=== PATIENT | male | born 1955 ===

== ENCOUNTER 2021-11-11 16:11 | Inpatient (IN) | payer OTHER, MEDICARE ==
[~2021-11-11] VITALS: Ht 172.7 cm; Wt 102.3 kg
[2021-11-11] MEDS ORDERED: FUROSEMIDE 40 MG/4 ML VIAL IVP ONE (16:30)
[2021-11-11 16:44] LABS: BASOPHILS % (AUTO) 1.1 % (0.0-2.0); EOSINOPHILS % (AUTO) 2.8 % (1.0-6.0); HEMATOCRIT 45.8 % (41-53); HEMOGLOBIN 14.9 g/dL (13.5-17.5); LYMPHOCYTES # (AUTO) 4.3 K/uL (1.0-4.8); LYMPHOCYTES % (AUTO) 57.5 % (22.0-44.0); MEAN CORPUSCULAR HGB CONC 32.5 G/dL (31.0-37.0); MEAN CORPUSCULAR VOLUME 86 fL (80-100); MONOCYTES # (AUTO) 0.8 K/uL (0.1-1.0); MONOCYTES % (AUTO) 10.2 % (2.0-9.0); NEUTROPHILS # (AUTO) 2.1 K/uL (1.8-7.7); NEUTROPHILS % (AUTO) 28.4 % (40.0-70.0); PLATELET COUNT (AUTO) 187 K/uL (150-450); RED BLOOD CELL COUNT(AUTO) 5.32 MIL/uL (4.50-5.90); RED CELL DISTRIBUTION WIDTH 16.2 % (11.5-14.5)
[2021-11-11 16:58] LABS: ANION GAP 10 mmol/L (8-16); CALCIUM, TOTAL 8.9 mg/dL (8.8-10.5); CARBON DIOXIDE 24 mmol/L (22-29); CHLORIDE 106 mmol/L (98-107); CREATININE 1.11 mg/dL (0.60-1.30); GLUCOSE,RANDOM 216 mg/dL (70-110); POTASSIUM 3.3 mmol/L (3.5-5.1); SODIUM SERUM 140 mmol/L (136-145); UREA NITROGEN, BLOOD 16 mg/dL (7-18)
[2021-11-11 17:00] LABS: GLOMERULAR FILTR. RATE CALC > 60 mL/min (>60)
[2021-11-11 17:02] LABS: PROTHROMBIN TIME 10.6 SEC (9.4-11.6)
[2021-11-11 17:04] LABS: ALANINE AMINOTRANSFERASE 41 U/L (12-78); ALBUMIN 3.3 g/dL (3.4-5.0); ALKALINE PHOSPHATASE 153 U/L (46-116); ASPARTATE AMINOTRANSFERASE 32 U/L (15-37); BILIRUBIN,TOTAL 0.5 mg/dL (0.1-1.0); TOTAL PROTEIN, SERUM 7.3 g/dL (6.4-8.2)
[2021-11-11 17:10] LABS: B-TYPE NATRIURETIC PEPTIDE 1270 pg/mL (0-100)
[2021-11-11 18:37] LABS: COVID AG,FIA SOURCE NASAL SWAB
[2021-11-11 18:58] LABS: INFLUENZA TYPE A NEGATIVE FOR TYPE A (NEGATIVE); INFLUENZA TYPE B NEGATIVE FOR TYPE B (NEGATIVE)
[2021-11-11 19:42] LABS: APPEARANCE,URINE CLEAR (CLEAR); BILIRUBIN,URINE NEGATIVE (NEGATIVE); GLUCOSE, URINE (UA) NEGATIVE (NEGATIVE); KETONES,URINE NEGATIVE (NEGATIVE); LEUKOCYTE ESTERASE ,URINE NEGATIVE (NEGATIVE); NITRATE,URINE NEGATIVE (NEGATIVE); OCCULT BLOOD,URINE NEGATIVE (NEGATIVE); PH,URINE 5.5 (5.0-8.0); PROTEIN,URINE NEGATIVE (NEGATIVE); SPECIFIC GRAVITIY, URINE 1.005 (1.003-1.030); UROBILINOGEN,URINE <=1.0 mg/dL (<=1.0)
[2021-11-11] MEDS ORDERED: BISACODYL 10 MG RECTAL RECTAL SUPPOSITORY PR PRN (20:45)
[2021-11-11] MEDS ORDERED: ONDANSETRON HCL 4 MG/2 ML VIAL IVP PRN (20:45)
[2021-11-11] MEDS ORDERED: *CLINICAL-LEVOFLOXACIN IVPB DOSING CLINICAL ONE (20:45)
[2021-11-11] MEDS ORDERED: MAGNESIUM HYDROXIDE SUSPENSION 30 ML UDCUP PO PRN (20:45)
[2021-11-11] MEDS ORDERED: ZOLPIDEM TARTRATE 5 MG TABLET PO PRN (20:45)
[2021-11-11] MEDS ORDERED: ACETAMINOPHEN 325 MG TABLET PO PRN (20:45)
[2021-11-11] MEDS ORDERED: MORPHINE SULFATE 2 MG/ML SYRINGE IVP PRN (20:45)
[2021-11-11 21:24] LABS: AMPHET/METH SCREEN,URINE NEGATIVE (NEGATIVE); BARBITURATE SCREEN, URINE NEGATIVE (NEGATIVE); BENZODIAZEPINES SCREEN,URINE NEGATIVE (NEGATIVE); CANNABINOID SCREEN,URINE NEGATIVE (NEGATIVE); COCAINE SCREEN,URINE NEGATIVE (NEGATIVE); METHADONE SCREEN, URINE NEGATIVE (NEGATIVE); OPIATE SCREEN,URINE NEGATIVE (NEGATIVE)
[2021-11-11 21:25] LABS: PHENCYCLIDINE SCREEN,URINE NEGATIVE (NEGATIVE)
[2021-11-11] MEDS: DOCUSATE SODIUM 100 MG CAPSULE PO SCH (21:53)
[2021-11-11] MEDS: FUROSEMIDE 40 MG/4 ML VIAL IVP SCH (21:53)
[2021-11-11] MEDS: LEVOFLOXACIN 750 MG/D5% WATER 150 ML IV SCH (22:07)
[2021-11-12] MEDS: HEPARIN SODIUM,PORCINE 5,000 UNITS/ML VIAL SQ SCH ×2 (00:12→08:21)
[2021-11-12 05:48] LABS: BASOPHILS % (AUTO) 1.2 % (0.0-2.0); EOSINOPHILS % (AUTO) 0.8 % (1.0-6.0); HEMATOCRIT 42.8 % (41-53); LYMPHOCYTES # (AUTO) 1.6 K/uL (1.0-4.8); LYMPHOCYTES % (AUTO) 28.5 % (22.0-44.0); MEAN CORPUSCULAR HGB CONC 32.8 G/dL (31.0-37.0); MEAN CORPUSCULAR VOLUME 86 fL (80-100); MONOCYTES # (AUTO) 0.6 K/uL (0.1-1.0); MONOCYTES % (AUTO) 10.2 % (2.0-9.0); NEUTROPHILS # (AUTO) 3.4 K/uL (1.8-7.7); NEUTROPHILS % (AUTO) 59.3 % (40.0-70.0); PLATELET COUNT (AUTO) 162 K/uL (150-450); RED BLOOD CELL COUNT(AUTO) 5.01 MIL/uL (4.50-5.90)
[2021-11-12 05:50] LABS: ANION GAP 4 mmol/L (8-16); CALCIUM, TOTAL 8.9 mg/dL (8.8-10.5); CARBON DIOXIDE 30 mmol/L (22-29); CHLORIDE 107 mmol/L (98-107); CREATININE 0.83 mg/dL (0.60-1.30); GLOMERULAR FILTR. RATE CALC > 60 mL/min (>60); GLUCOSE,RANDOM 93 mg/dL (70-110); POTASSIUM 3.4 mmol/L (3.5-5.1); SODIUM SERUM 141 mmol/L (136-145); UREA NITROGEN, BLOOD 13 mg/dL (7-18)
[2021-11-12] MEDS: FUROSEMIDE 40 MG/4 ML VIAL IVP SCH ×2 (08:35→21:10)
[2021-11-12] MEDS: PANTOPRAZOLE SODIUM 40 MG DR TABLET PO SCH (08:36)
[2021-11-12] MEDS: DOCUSATE SODIUM 100 MG CAPSULE PO SCH ×2 (08:36→21:11)
[2021-11-12 10:45] VITALS: BP 147/83
[2021-11-12] MEDS ORDERED: ASPIRIN 81 MG CHEWABLE TABLET PO SCH (15:15)
[2021-11-12] MEDS ORDERED: POTASSIUM CHL 10 MEQ/WATER 50 ML IV PRN (15:15)
[2021-11-12] MEDS ORDERED: POTASSIUM CHLORIDE 20 MEQ ER TABLET PO PRN (15:15)
[2021-11-12 15:45] VITALS: BP 140/108
[2021-11-12] MEDS ORDERED: HEPARIN SODIUM,PORCINE 5,000 UNITS/ML VIAL IVP PRN ×2 (16:15)
[2021-11-12] MEDS ORDERED: HEPARIN SODIUM 25000 UNITS/D5W 250 ML IV PRN (16:15)
[2021-11-12] MEDS: ASPIRIN 81 MG DR TABLET PO SCH (16:30)
[2021-11-12] MEDS: ATORVASTATIN CALCIUM 40 MG TABLET PO SCH (16:31)
[2021-11-12 17:07] LABS: BASOPHILS % (AUTO) 1.5 % (0.0-2.0); EOSINOPHILS % (AUTO) 1.6 % (1.0-6.0); HEMATOCRIT 47.2 % (41-53); HEMOGLOBIN 15.6 g/dL (13.5-17.5); LYMPHOCYTES % (AUTO) 32.3 % (22.0-44.0); MEAN CORPUSCULAR HEMOGLOBIN 28.2 pg (26.0-34.0); MEAN CORPUSCULAR HGB CONC 33.1 G/dL (31.0-37.0); MEAN CORPUSCULAR VOLUME 85 fL (80-100); MONOCYTES # (AUTO) 0.7 K/uL (0.1-1.0); MONOCYTES % (AUTO) 11.4 % (2.0-9.0); NEUTROPHILS # (AUTO) 3.3 K/uL (1.8-7.7); NEUTROPHILS % (AUTO) 53.2 % (40.0-70.0); PLATELET COUNT (AUTO) 186 K/uL (150-450); RED BLOOD CELL COUNT(AUTO) 5.55 MIL/uL (4.50-5.90); RED CELL DISTRIBUTION WIDTH 15.8 % (11.5-14.5)
[2021-11-12 17:28] LABS: INR 1.1 (0.9-1.1); PROTHROMBIN TIME 11.5 SEC (9.4-11.6)
[2021-11-12] MEDS: CARVEDILOL 3.125 MG TABLET PO SCH (21:11)
[2021-11-12 21:24] VITALS: BP 152/75
[2021-11-12 23:42] VITALS: BP 135/85
[2021-11-13] MEDS: LEVOFLOXACIN 750 MG/D5% WATER 150 ML IV SCH (01:36)
[2021-11-13 05:51] VITALS: BP 122/75
[2021-11-13 06:23] LABS: BASOPHILS % (AUTO) 1.2 % (0.0-2.0); EOSINOPHILS % (AUTO) 0.9 % (1.0-6.0); HEMATOCRIT 49.6 % (41-53); HEMOGLOBIN 16.5 g/dL (13.5-17.5); LYMPHOCYTES % (AUTO) 34.2 % (22.0-44.0); MEAN CORPUSCULAR HEMOGLOBIN 28.3 pg (26.0-34.0); MEAN CORPUSCULAR HGB CONC 33.2 G/dL (31.0-37.0); MEAN CORPUSCULAR VOLUME 85 fL (80-100); MONOCYTES # (AUTO) 0.7 K/uL (0.1-1.0); MONOCYTES % (AUTO) 11.1 % (2.0-9.0); NEUTROPHILS # (AUTO) 3.1 K/uL (1.8-7.7); NEUTROPHILS % (AUTO) 52.6 % (40.0-70.0); PLATELET COUNT (AUTO) 191 K/uL (150-450); RED BLOOD CELL COUNT(AUTO) 5.81 MIL/uL (4.50-5.90); RED CELL DISTRIBUTION WIDTH 15.6 % (11.5-14.5)
[2021-11-13 06:45] LABS: ANION GAP 6 mmol/L (8-16); CALCIUM, TOTAL 9.5 mg/dL (8.8-10.5); CARBON DIOXIDE 32 mmol/L (22-29); CHLORIDE 103 mmol/L (98-107); GLUCOSE,RANDOM 106 mg/dL (70-110); POTASSIUM 4.3 mmol/L (3.5-5.1); SODIUM SERUM 141 mmol/L (136-145); UREA NITROGEN, BLOOD 12 mg/dL (7-18)
[2021-11-13 06:50] LABS: GLOMERULAR FILTR. RATE CALC > 60 mL/min (>60)
[2021-11-13] MEDS: NICOTINE 21 MG/24 HOUR PATCH TD SCH (08:16)
[2021-11-13] MEDS: CARVEDILOL 3.125 MG TABLET PO SCH ×2 (08:18→20:34)
[2021-11-13] MEDS: DOCUSATE SODIUM 100 MG CAPSULE PO SCH ×2 (08:18→20:34)
[2021-11-13] MEDS: ATORVASTATIN CALCIUM 40 MG TABLET PO SCH (08:19)
[2021-11-13] MEDS: ASPIRIN 81 MG DR TABLET PO SCH (08:19)
[2021-11-13] MEDS: PANTOPRAZOLE SODIUM 40 MG DR TABLET PO SCH (08:20)
[2021-11-13] MEDS: FUROSEMIDE 40 MG/4 ML VIAL IVP SCH (08:21)
[2021-11-13 09:00] VITALS: BP 140/79
[2021-11-13] MEDS ORDERED: HEPARIN SODIUM,PORCINE 5,000 UNITS/ML VIAL IVP PRN ×2 (10:15)
[2021-11-13 11:16] VITALS: BP 126/86
[2021-11-13] MEDS: LOSARTAN POTASSIUM 25 MG TABLET PO SCH (13:04)
[2021-11-13 15:13] VITALS: BP 126/75
[2021-11-13 20:32] VITALS: BP 129/87
[2021-11-13] MEDS: FUROSEMIDE 20 MG/2 ML VIAL IVP SCH (20:34)
[2021-11-13] MEDS ORDERED: FUROSEMIDE 40 MG TABLET PO SCH (21:00)
[2021-11-13] MEDS ORDERED: APIXABAN 5 MG TABLET PO SCH (21:00)
[2021-11-13] MEDS: HEPARIN SODIUM 25000 UNITS/D5W 250 ML IV PRN (21:48)
[2021-11-14] MEDS: LEVOFLOXACIN 750 MG/D5% WATER 150 ML IV SCH (00:55)
[2021-11-14 06:05] VITALS: BP 134/95
[2021-11-14 07:43] LABS: EOSINOPHILS % (AUTO) 2.8 % (1.0-6.0); HEMATOCRIT 47.7 % (41-53); HEMOGLOBIN 15.8 g/dL (13.5-17.5); LYMPHOCYTES # (AUTO) 2.1 K/uL (1.0-4.8); MEAN CORPUSCULAR HEMOGLOBIN 28.4 pg (26.0-34.0); MEAN CORPUSCULAR HGB CONC 33.2 G/dL (31.0-37.0); MEAN CORPUSCULAR VOLUME 85 fL (80-100); MONOCYTES # (AUTO) 0.6 K/uL (0.1-1.0); MONOCYTES % (AUTO) 10.5 % (2.0-9.0); NEUTROPHILS # (AUTO) 2.9 K/uL (1.8-7.7); PLATELET COUNT (AUTO) 186 K/uL (150-450); RED BLOOD CELL COUNT(AUTO) 5.58 MIL/uL (4.50-5.90); RED CELL DISTRIBUTION WIDTH 15.5 % (11.5-14.5)
[2021-11-14 07:45] LABS: ANION GAP 5 mmol/L (8-16); CALCIUM, TOTAL 9.1 mg/dL (8.8-10.5); CARBON DIOXIDE 33 mmol/L (22-29); CHLORIDE 102 mmol/L (98-107); CREATININE 1.04 mg/dL (0.60-1.30); GLUCOSE,RANDOM 110 mg/dL (70-110); POTASSIUM 3.8 mmol/L (3.5-5.1); SODIUM SERUM 140 mmol/L (136-145); UREA NITROGEN, BLOOD 15 mg/dL (7-18)
[2021-11-14 07:47] LABS: GLOMERULAR FILTR. RATE CALC > 60 mL/min (>60)
[2021-11-14 07:49] LABS: BASOPHILS % (AUTO) 1.7 % (0.0-2.0)
[2021-11-14 08:10] VITALS: BP 134/102
[2021-11-14] MEDS: NICOTINE 21 MG/24 HOUR PATCH TD SCH (09:00)
[2021-11-14] MEDS: DOCUSATE SODIUM 100 MG CAPSULE PO SCH ×2 (09:00→20:20)
[2021-11-14] MEDS: FUROSEMIDE 20 MG/2 ML VIAL IVP SCH (09:04)
[2021-11-14] MEDS: LOSARTAN POTASSIUM 25 MG TABLET PO SCH (09:04)
[2021-11-14] MEDS: CARVEDILOL 3.125 MG TABLET PO SCH ×2 (09:04→20:19)
[2021-11-14] MEDS: ASPIRIN 81 MG DR TABLET PO SCH (09:05)
[2021-11-14] MEDS: PANTOPRAZOLE SODIUM 40 MG DR TABLET PO SCH (09:05)
[2021-11-14] MEDS: ATORVASTATIN CALCIUM 40 MG TABLET PO SCH (09:05)
[2021-11-14] MEDS ORDERED: APIXABAN 5 MG TABLET PO SCH (11:00)
[2021-11-14] MEDS: HEPARIN SODIUM 25000 UNITS/D5W 250 ML IV PRN ×2 (11:51→14:22)
[2021-11-14 12:24] VITALS: BP 109/77
[2021-11-14 16:13] VITALS: BP 129/70
[2021-11-14 19:27] VITALS: BP 112/71
[2021-11-14] MEDS: FUROSEMIDE 20 MG TABLET PO SCH (20:19)
[2021-11-14 23:48] VITALS: BP 130/80
[2021-11-15] MEDS: LEVOFLOXACIN 750 MG/D5% WATER 150 ML IV SCH (02:16)
[2021-11-15 04:25] VITALS: BP 127/62
[2021-11-15 07:04] LABS: ANION GAP 4 mmol/L (8-16); CALCIUM, TOTAL 9.2 mg/dL (8.8-10.5); CARBON DIOXIDE 34 mmol/L (22-29); CHLORIDE 104 mmol/L (98-107); CREATININE 1.02 mg/dL (0.60-1.30); GLUCOSE,RANDOM 97 mg/dL (70-110); POTASSIUM 3.9 mmol/L (3.5-5.1); SODIUM SERUM 142 mmol/L (136-145); UREA NITROGEN, BLOOD 15 mg/dL (7-18)
[2021-11-15 07:06] LABS: GLOMERULAR FILTR. RATE CALC > 60 mL/min (>60)
[2021-11-15 08:02] VITALS: BP 114/83
[2021-11-15] MEDS: LOSARTAN POTASSIUM 25 MG TABLET PO SCH (08:21)
[2021-11-15] MEDS: HYDROCODONE/ACETAMINOPHEN 5-325 MG TABLET PO PRN ×3 (08:22→16:46)
[2021-11-15] MEDS: NICOTINE 21 MG/24 HOUR PATCH TD SCH (08:22)
[2021-11-15] MEDS: FUROSEMIDE 20 MG TABLET PO SCH (08:22)
[2021-11-15] MEDS: ASPIRIN 81 MG DR TABLET PO SCH (08:22)
[2021-11-15] MEDS: DOCUSATE SODIUM 100 MG CAPSULE PO SCH (08:22)
[2021-11-15] MEDS: ATORVASTATIN CALCIUM 40 MG TABLET PO SCH (08:22)
[2021-11-15] MEDS: PANTOPRAZOLE SODIUM 40 MG DR TABLET PO SCH (08:22)
[2021-11-15] MEDS ORDERED: CARVEDILOL 6.25 MG TABLET PO SCH (09:00)
[2021-11-15 11:18] VITALS: BP 115/79
[2021-11-15] MEDS ORDERED: LOSA25TA2 PO (12:30)
[2021-11-15] MEDS ORDERED: FURO20 PO (12:30)
[2021-11-15] MEDS ORDERED: ASPI-1444 PO (12:30)
[2021-11-15] MEDS ORDERED: APIX5TAB PO ×2 (12:30→12:33)
[2021-11-15] MEDS ORDERED: ATOR40TA71 PO (12:30)
[2021-11-15] MEDS ORDERED: CARV6 PO (12:30)
[2021-11-15] MEDS ORDERED: PANT-31 PO (12:38)
[2021-11-15 15:02] VITALS: BP 121/76
[2021-11-20] MEDS ORDERED: APIXABAN 5 MG TABLET PO SCH (21:00)
[2021-11-21] MEDS ORDERED: APIXABAN 5 MG TABLET PO SCH (09:00)
== END 2021-11-15 19:10 | disposition home or self-care (01) | DRG 291 ==
LOC: EMS 16:13 → 5S 11-12 08:48
PROVIDERS: ADMIT Internal Medicine; ATTEND Internal Medicine
PROC: 5A09357 Assistance with Respiratory Ventilation, Less than 24 Consecutive Hours, Continuous Positive Airway Pressure (ICD-10-PCS; principal; 2021-11-11)
DX: I11.0 Hypertensive heart disease with heart failure (principal); I50.43 Acute on chronic combined systolic (congestive) and diastolic (congestive) heart failure; I42.9 Cardiomyopathy, unspecified; R07.89 Other chest pain; F17.210 Nicotine dependence, cigarettes, uncomplicated; E87.6 Hypokalemia; R09.02 Hypoxemia; R73.9 Hyperglycemia, unspecified; Z20.822 Contact with and (suspected) exposure to COVID-19; I51.3 Intracardiac thrombosis, not elsewhere classified; Z79.01 Long term (current) use of anticoagulants; Z79.82 Long term (current) use of aspirin; Z91.19 Patient's noncompliance with other medical treatment and regimen; Z59.9 Problem related to housing and economic circumstances, unspecified; Z79.899 Other long term (current) drug therapy
CPT/HCPCS: 71045; 80048; 80053; 81003; 82271; 83735; 83880; 84484; 85025; 85610; 85730; 87804; 93005; 93306; 94660; 99291; J1644; J1940; J1956; J2270; 36415-L1; 36415-TC